=== PATIENT | male | born 1985 | race Caucasian/White ===

== ENCOUNTER 2019-10-13 13:31 | Emergency (ER) | payer BC, MEDICAID ==
[~2019-10-13] VITALS: Ht 172.7 cm; Wt 63.6 kg
[2019-10-13 13:46] VITALS: BP 142/74
[2019-10-13] MEDS ORDERED: CEPH-264 PO (13:59)
--- NOTE | 2019-10-13 13:59 | PHYS DOC ---
Past History Past Medical History: No Pertinent History Past Surgical History: No Surgical History Alcohol Use: None General Adult EDM: Chief Complaint: ABSCESS HPI: HPI: 34-year-old male presents with concern for ruptured abscess. His girlfriend was scratching his back where he has had a normal lesion for several years. It started leaking and thick white fluid came out. She became very concerned because its right next to his spine. The patient did not know what kind of lump it was either so he came to the emergency room. It is no longer leaking fluid at this time. There is no bleeding. It is mildly erythematous around it. Patient has no other complaints at this time. Denies fever chills. Review of Systems: Review of Systems: Constitutional: Denies fever or chills Eyes: Denies change in visual acuity HENT: Denies nasal congestion or sore throat Respiratory: Denies cough or shortness of breath Cardiovascular: Denies chest pain or edema GI: Denies abdominal pain, nausea, vomiting, bloody stools or diarrhea : Denies dysuria Musculoskeletal: Denies back pain or joint pain Integument: Skin lesion, mid spine Neurologic: Denies headache, focal weakness or sensory changes Endocrine: Denies polyuria or polydipsia Lymphatic: Denies swollen glands Psychiatric: Denies depression or anxiety Heart Score: Risk Factors: Risk Factors: DM, Current or recent (<one month) smoker, HTN, HLP, family history of CAD, obesity. Risk Scores: Score 0 - 3: 2.5% MACE over next 6 weeks - Discharge Home Score 4 - 6: 20.3% MACE over next 6 weeks - Admit for Clinical Observation Score 7 - 10: 72.7% MACE over next 6 weeks - Early Invasive Strategies Allergies: Allergies: Allergies Coded Allergies Type Severity Reaction Last Updated Verified No Known Drug Allergies 10/13/19 No Physical Exam: PE: Constitutional: Well developed, well nourished, no acute distress, non-toxic appearance. [] HENT: Normocephalic, atraumatic, bilateral external ears normal, oropharynx moist, no oral exudates, nose normal. [] Eyes: PERRLA, EOMI, conjunctiva normal, no discharge. [] Neck: Normal range of motion, no tenderness, supple, no stridor. [] Cardiovascular:Heart rate regular rhythm, no murmur [] Lungs & Thorax: Bilateral breath sounds clear to auscultation [] Abdomen: Bowel sounds normal, soft, no tenderness, no masses, no pulsatile masses. [] Skin: Ruptured epidermal cyst at about T8 with some surrounding erythema. [] Back: No tenderness, no CVA tenderness. [] Extremities: No tenderness, no cyanosis, no clubbing, ROM intact, no edema. [] Neurologic: Alert and oriented X 3, normal motor function, normal sensory function, no focal deficits noted. [] Psychologic: Affect normal, judgement normal, mood normal. [] Current Patient Data: Vital Signs: Vital Signs Date Time Temp Pulse Resp B/P (MAP) Pulse Ox O2 Delivery O2 Flow Rate FiO2 10/13/19 13:46 98.3 65 142/74 (96) 100 Room Air EKG: EKG: [] Radiology/Procedures: Radiology/Procedures: [] Course & Med Decision Making: Course & Med Decision Making Pertinent Labs and Imaging studies reviewed. (See chart for details) This appears to be a ruptured dermal cyst. I was unable to tease out the sac that remained. I trimmed it to below the skin level. I then covered it with a clean Band-Aid. Given the location and some erythema I will cover him with antibiotics for 7 days. I have advised if he wants to have this removed permanently he should seek out a family medicine physician or race relations adviser that could cut it out. He is stable for discharge at this time. [] Dragon Disclaimer: Dragon Disclaimer: This electronic medical record was generated, in whole or in part, using a voice recognition dictation system. Departure Departure: Impression: Primary Impression: Epidermal cyst Disposition: HOME, SELF-CARE Condition: IMPROVED Referrals: PCP,NO (PCP) Patient Instructions: Epidermal Cyst, [id number] Scripts Cephalexin (KEFLEX) 500 Mg Capsule 1 CAP PO TID for infection prophylaxis for 7 Days, #21 CAP 0 Refills Prov: JOSH YUEN DO 10/13/19 JOSH YUEN DO Oct 13, 2019 13:59
== END 2019-10-13 14:00 | disposition home or self-care (01) ==
LOC: ER 13:31
DX: L72.8 Other follicular cysts of the skin and subcutaneous tissue (principal)
CPT/HCPCS: 11400; 99283; 99284